=== PATIENT | male | born 1975 | race Caucasian/White ===

== ENCOUNTER 2023-10-05 16:31 | Emergency (ER) | payer OTHER, SELFPAY ==
[2023-10-05 16:34] VITALS: BP 144/105
[2023-10-05 18:10] VITALS: BP 128/75
--- NOTE | 2023-10-05 18:14 | ED.GENMED ---
History of Present Illness
General
Chief Complaint: Swelling
Time Seen by Provider: 10/05/23 17:35
History of Present Illness
History of Present Illness:
48-year-old male presents the emergency department for evaluation of swelling and bruising to the left eye, was lifting weights when he dropped a part of a barbell against the left eye. When the eyelid is forced open he denies any blurry vision or
photophobia. Does not wear glasses. Denies any headaches or dizziness
Past History
Past History
ED Past Medical History: HTN
ED Past Surgical History: Orthopedic ( BKA L)
Social History
Tobacco: Non-smoker
Alcohol: None
Personal:
Living: with family
Employment: Employed
Review of Systems
Review of Systems
Allergies reviewed?: Yes
All Other Systems: ROS reviewed and negative except as documented in HPI and ROS
Phy Exam
Physical Exam
Physical Exam:
GEN: Well appearing, NAD, WDWN
HEENT: Severe left periorbital ecchymosis and swelling primarily supraorbital, no crepitus or open wounds. Extraocular motions are intact with no deficit or pain bilaterally, normal pupillary response on the left with no evidence for hyphema or
scleral injection. oral mucosa moist, no scleral icterus
Cardiac: Regular rate
Lung: No respiratory distress, no tachypnea
MSK: No gross deformity or injuries
Skin: Good color, no pallor or jaundice, no rashes
Neuro: AO x3, moves all extremities freely, cranial nerves II through XII grossly intact
Psych: Calm, cooperative
Scores
Heart Failure Risk
Heart Failure Risk Score: Not Applicable
Course
Orders/Labs/Results
Orders:
Orders
10/05/23 16:37
CR Facial Bones Comp Min 3 Vw* Urgent
Comment:
Reason For Exam: injury
10/05/23 18:14
CT Facial Bones W/o Iv Contras Urgent
Comment:
Reason For Exam: L orbital injury
10/05/23 19:31
Acetaminophen [Tylenol] 1,000 mg PO NOW STA
Vital Signs
Initial and Last Documented VS:
Initial Vital Signs
Temp Pulse Resp BP Pulse Ox
98.4 F 95 20 144/105 99
10/05/23 16:34 10/05/23 16:34 10/05/23 16:34 10/05/23 16:34 10/05/23 16:34
Last Documented Vital Signs
Temp Pulse Resp BP Pulse Ox
98.4 F 71 16 122/78 98
10/05/23 16:34 10/05/23 20:51 10/05/23 20:51 10/05/23 20:51 10/05/23 20:51
MDM/Problems Addressed
MDM/Problems Addressed:
Facial bone CT was obtained as facial bone x-ray although negative is not sensitive enough to definitively rule out an orbital fracture. Imaging reveals no evidence for facial bone fracture, discussed supportive care
*Critical Care Note
Total Time (30-74mins, 75-104mins- exclusive of procedures): Not Applicable
ED Attending Note
-
Portions of this chart may have been created with voice recognition software.� Occasional wrong word or��sound alike� substitutions may have occurred due to the inherent limitations of voice recognition software.
Discharge Plan
Departure
Patient Disposition: Home (Routine Discharge)
Date of Disposition: 10/05/23
Time of Disposition: 20:21
Patient with high blood pressure during this ER visit?: No
Discharge Problem:
Periorbital hematoma of left eye
Instructions: Hematoma
Prescriptions:
No Action
hydrocodone-acetaminophen [Vicodin] 1 EACH tablet
1 ea PO Q4HPRN PRN (Reason: Pain) Qty: 15 0RF
hydrocodone-acetaminophen 5 MG/500 MG tablet
1 tab PO .Q4-6HPRN PRN (Reason: PAIN) Qty: 20 0RF
ondansetron 4 MG tablet,disintegrating
4 mg PO Q8H Qty: 15 0RF
Referrals:
Stella Wynn MD [Family Provider] -
Activity Restrictions/Additional Instructions:
ICE ICE BABY!
Ice often, at least 3-5 times daily
Sleep with your head elevated for at least the next 3 days, as this will help the blood drain from around the eye
If you develop any vision changes, return immediately to the ER
Interventions
Interventions:
*Risk Screen - Suicide Last Done: 10/05/23 16:34
*General Assessment Last Done: 10/05/23 16:34
*Neglect/Abuse Screening Last Done: 10/05/23 16:34
ED- Fall Risk Assessment Last Done: 10/05/23 18:29
*ED COVID-19 Vaccine History Last Done: 10/05/23 20:51
*Nursing Disposition Last Done: 10/05/23 20:51
ED- Cardiac Assessment Last Done: 10/05/23 18:29
ED- Pulmonary Assessment Last Done: 10/05/23 18:29
ED-Skin Assessment Last Done: 10/05/23 18:29
Discharge Date and Time
Discharge Date/Time: 10/05/23 20:52
Print Language: BULGARIAN
[2023-10-05 19:00] VITALS: BP 122/72
[2023-10-05] MEDS: TYLENOL 1000 MG PO (19:39)
[2023-10-05 20:00] VITALS: BP 131/71
[2023-10-05 20:51] VITALS: BP 122/78
== END 2023-10-05 20:52 | disposition home or self-care (01) ==
LOC: EMR 16:31
PROVIDERS: EMERGENCY PHYSICIAN Emergency Medicine; FAMILY PHYSICIAN Family Medicine
DX: S00.12XA Contusion of left eyelid and periocular area, initial encounter (principal); W20.8XXA Other cause of strike by thrown, projected or falling object, initial encounter; Y93.B3 Activity, free weights; I10 Essential (primary) hypertension; Z89.512 Acquired absence of left leg below knee
CPT/HCPCS: 99284; 70150; 70486

== ENCOUNTER 2023-12-11 18:17 | Emergency (ER) | payer OTHER, SELFPAY ==
[2023-12-11 18:19] VITALS: BP 122/84
--- NOTE | 2023-12-11 18:37 | EDRN ---
Herbert HWANG was just in to see pt.
[2023-12-11] MEDS: BENADRYL 50 MG IV (18:42)
[2023-12-11] MEDS: PEPCID 20 MG IV (18:44)
--- NOTE | 2023-12-11 18:44 | ED.GENMED ---
History of Present Illness
General
Chief Complaint: Allergic Reaction
Source: patient and spouse
Exam Limitations: none
Time Seen by Provider: 12/11/23 18:27
History of Present Illness
History of Present Illness:
This is a 48 year old male that comes in with c/o allergic reaction. States that he went to today as he has been sick for a couple of weeks. States that he started with head/sinus pressure and he had some discharge. States that they gave him
Prednisone and Amoxicillin. States that he took this at 5pm and in 20 mint he was red, felt like his throat was closing and he had hives all over. States that he felt SOB with burning in his chest. States that he was also dizzy. states that he
has taken both before and never had any issues. Denies any fever, chills, chest pain, abd pain, nausea, vomiting, diarrhea, headache, urinary burning.
Past History
Past History
ED Past Medical History: Cancer (Skin CA), HTN, Psychiatric (Anxiety, Depression) and Other (De Leon's Esophagus, IBS, )
ED Past Surgical History: Orthopedic ( L AKA due to trauma) and Other (Plastic surgery to knee, Nasal surgery, )
Social History
Tobacco: Non-smoker
Alcohol: Occasional
Personal:
Living: with family
Employment: Employed
Review of Systems
Review of Systems
All Other Systems: ROS reviewed and negative except as documented in HPI and ROS
Constitutional: Reports no symptoms; Denies fever or chills
EENT: Reports no symptoms
Respiratory: Reports trouble breathing; Denies cough
Cardiac: Reports other (Burning in chest); Denies chest pain
ABD/GI: Reports no symptoms; Denies abdominal pain, nausea, vomiting or diarrhea
: Reports no symptoms; Denies dysuria, frequency or urgency
Musculoskeletal: Reports no symptoms
Skin: Reports other (Hives, )
Neurological: Reports dizzy; Denies headache
Psychiatric: Reports no symptoms
Phy Exam
General Physical Exam
General Presentation: no apparent distress
General age: appears stated age
General Skin: warm and dry
General Habitus: normal
General Mental: alert
General Hydration: appears well hydrated
ENT Exam
ENT Exam: TM's normal, pharynx normal and neck supple
Eye Exam
Eye Exam: EOMI
Cardiovascular Exam
Cardiovascular Exam: regular rate/rhythm, no edema, no murmur and normal peripheral pulses
Pulmonary Exam
Pulmonary Exam: lungs clear, no respiratory distress, no rales, chest non tender, no crackles, no rhonchi, no wheezing and no cough
Gastrointestinal Exam
Gastrointestinal Exam: normal bowel sounds, non tender, soft, no organomegaly, no pulsatile mass and non distended
Musculoskeletal Exam
Musculoskeletal Exam: full ROM and no edema
Skin Exam
Skin Exam: normal color, warm/dry, no rash, no petechia and other (Hives are now gone)
Psychiatric Exam
Psychiatric Exam: anxious
Course
Orders/Labs/Results
Orders:
Orders
12/11/23 18:35
0.9% Sodium Chloride 1000 ml [Nss] 1,000 ml IV BOLUS
Diphenhydramine [Benadryl] 50 mg IV NOW STA
Famotidine [Pepcid] 20 mg IV NOW STA
Vital Signs
Initial and Last Documented VS:
Initial Vital Signs
Temp Pulse Resp BP Pulse Ox
98.6 F 92 18 122/84 99
12/11/23 18:19 12/11/23 18:19 12/11/23 18:19 12/11/23 18:19 12/11/23 18:19
Last Documented Vital Signs
Temp Pulse Resp BP Pulse Ox
98.6 F 87 20 137/81 97
12/11/23 18:19 12/11/23 19:14 12/11/23 19:07 12/11/23 18:50 12/11/23 19:07
MDM/Problems Addressed
Differential Diagnosis Includes:
Allergic reaction,
MDM/Problems Addressed:
This is a 48 year old male that comes in with c/o allergic reaction. States that he went to and was given Amoxicillin and Prednisone for a sinus infection. States that he took them at 5pm and in 20 mint he broke out in hives.
Will give Pepcid and Benadryl and watch patient.
back into see patient. Patient is feeling much better. Patient would like a different antibiotic for his sinus infection. Will give patent a prescription for Zithromax and EpiPen. Patient to follow up wtih the family doctor and an allergiest for
further testing. Patient to return with any concerns.
Chronic conditions affecting care:
Anxiety
Acute Exacerbation and/or Progression of Chronic Illness:
Anxiety
*Pulse Oximetry
Patient hypoxic: no
*EKG
Interpreted by ED Provider?: NA
Rate: EKG- N/A
*First Officer Interpretation
Rate: normal
Heart Rate: 87
*Critical Care Note
Total Time (30-74mins, 75-104mins- exclusive of procedures): Not Applicable
ED Attending Note
-
Portions of this chart may have been created with voice recognition software.� Occasional wrong word or��sound alike� substitutions may have occurred due to the inherent limitations of voice recognition software.
Discharge Plan
Departure
Patient Disposition: Home (Routine Discharge)
Date of Disposition: 12/11/23
Time of Disposition: 19:59
Patient with high blood pressure during this ER visit?: Yes
Condition: Good
Covid-19: Not Applicable
Discharge Problem:
Allergic reaction to drug
Instructions: Hives, Adverse Drug Reactions, Adult ED, BLOOD PRESSURE
Prescriptions:
New
epinephrine [EpiPen] 0.3 mg/0.3 mL auto-injector
0.3 mg IM ONCE PRN (Reason: allergic reaction) Qty: 1 0RF
azithromycin [Zithromax Z-Pio] 250 mg tablet
250 mg PO DAILY 5 Days Qty: 5 0RF
Rx Instructions:
Take 2 tablets first day and then 1tablet daily
No Action
hydrocodone-acetaminophen [Vicodin] 1 EACH tablet
1 ea PO Q4HPRN PRN (Reason: Pain) Qty: 15 0RF
hydrocodone-acetaminophen 5 MG/500 MG tablet
1 tab PO .Q4-6HPRN PRN (Reason: PAIN) Qty: 20 0RF
ondansetron 4 MG tablet,disintegrating
4 mg PO Q8H Qty: 15 0RF
Referrals:
Len Vargas PA [Family Provider] - Follow up in 2-3 days
Activity Restrictions/Additional Instructions:
As discussed, it is hard to say which medication you were allergic to. Most likely it is the antibiotics. Please follow up with an panel sewer for further evaluation. You have had a prescription for Zithromax sent to your Pharmacy. You also have a
prescription for an EpiPen for any further allergic reaction. Follow up with the family doctor for recheck. You may also use Benadryl 50mg every 6 hours as needed for any hives. IF YOU HAVE ANY OTHER CONCERNS PLEASE RETURN TO THE EMERGENCY ROOM
Interventions
Interventions:
*Risk Screen - Suicide Last Done: 12/11/23 18:50
*General Assessment Last Done: 12/11/23 18:50
*Neglect/Abuse Screening Last Done: 12/11/23 18:50
ED- Fall Risk Assessment Last Done: 12/11/23 18:50
*ED COVID-19 Vaccine History Last Done: 12/11/23 18:50
ED- Cardiac Assessment Last Done: 12/11/23 18:50
ED- Pulmonary Assessment Last Done: 12/11/23 18:50
ED-Skin Assessment Last Done: 12/11/23 18:50
Discharge Date and Time
Print Language: UPPER SORBIAN
[2023-12-11] MEDS: NSS 1000 IV (18:45)
[2023-12-11 18:49] VITALS: BMI 37.0
[2023-12-11 18:50] VITALS: BP 137/81
--- NOTE | 2023-12-11 18:53 | EDRN ---
Pt states he developed redness and pruritis over torso and head w/ SOB. Redness went up from torse to head. Pt had burning sensation in throat and chest like acid reflux.
[2023-12-11 20:00] VITALS: BP 137/78
== END 2023-12-11 20:15 | disposition home or self-care (01) ==
LOC: EMR 18:17
PROVIDERS: EMERGENCY PHYSICIAN Student in an Organized Health Care Education/Training Program; FAMILY PHYSICIAN Nurse Practitioner Family
DX: T78.40XA Allergy, unspecified, initial encounter (principal); Y92.9 Unspecified place or not applicable; I10 Essential (primary) hypertension; F41.9 Anxiety disorder, unspecified; K58.9 Irritable bowel syndrome, unspecified; K22.70 Barrett's esophagus without dysplasia; Z85.828 Personal history of other malignant neoplasm of skin; Z87.19 Personal history of other diseases of the digestive system; Z89.612 Acquired absence of left leg above knee
CPT/HCPCS: 99282; 96374; 96375; 96361

== ENCOUNTER 2024-10-04 03:04 | Emergency (ER) | payer OTHER, SELFPAY ==
[2024-10-04 03:13] VITALS: BP 136/79
[2024-10-04] MEDS: KEFLEX 500 MG PO (04:30)
--- NOTE | 2024-10-04 05:16 | ED.SKININJ ---
HPI-Injury
General
Chief Complaint: Skin Problem
Source: patient
Exam Limitations: none
Time Seen by Provider: 10/04/24 03:23
Nursing documentation reviewed up to this point in time: agreed with
History of Present Illness-Injury
Initial Injury comments:
Note:
CHIEF COMPLAINT(S)
Abscess on the right back with associated redness and low-grade fevers.
HISTORY OF PRESENT ILLNESS
The patient is a 49-year-old male presenting with an abscess located on his right back. The abscess appeared to have spontaneously drained; however, he is experiencing associated redness and low-grade fevers. The patient visited an urgent care
facility and was prescribed a four-day course of antibiotics, which have not resulted in an improvement of symptoms. The plan is to anesthetize the area and attempt further drainage of the abscess.
PHYSICAL EXAM
General: Alert, no acute distress.
Skin: Warm, dry.
Head: Normocephalic, atraumatic.
Neck: Supple, trachea midline.
Eye, Ears, Nose, Mouth and Throat: Oral mucosa moist.
Cardiovascular: Normal peripheral perfusion, No edema.
Respiratory: Respirations are non-labored.
Gastrointestinal: Abdomen nondistended.
Back: Temporary note exclusion due to the conversation focusing on the abscess intervention.
Musculoskeletal: Normal range of motion, normal strength.
Neurological: Alert and oriented to person, place, time, and situation, No focal neurological deficit observed.
Psychiatric: Cooperative, appropriate mood & affect.
PROBLEM LIST
Acute Problems:
- Abscess on the right back with associated redness and low-grade fevers.
PLAN
- Administer local anesthesia to the affected area and proceed with drainage of the abscess.
DIFFERENTIAL DIAGNOSIS
The Differential Diagnosis includes, in no particular order and is not limited to:
1. Infected sebaceous cyst
2. Staphylococcal skin infection
3. Cellulitis
4. Folliculitis
5. Acneiform eruption
6. Hidradenitis suppurativa
7. Carbuncle
8. Furunculosis
9. Pilonidal cyst
10. Epidermal inclusion cyst
CARE-UPDATE
10/04/24 - 03:55
The patient presented with a lesion suspected to be either a bug bite, a cyst, or another form of abscess. Currently on TMP-SMX (Bactrim) for two days, with four doses taken in total. Inspection revealed a lesion with bloody and creamy exudate,
which suggested drainage had started as the lesion opened up on its own. Attempts to further drain the lesion indicated it was solidified inside, described as caseated material, and was not amenable to further drainage. No fever reported, slightly
elevated temperature at 99.5�F today. Antibiotic therapy with TMP-SMX will be continued to allow enough time for evaluation of its effectiveness. Potential addition of cephalexin is under consideration. The lesion is likely to resorb or drain slowly
with continued antibiotic treatment. The area was cleaned and left open to avoid re-abscess, with ongoing assessment advised.
Disposition:
SUMMARY OF ENCOUNTER
A 49-year-old male was seen with a diagnosed abscess on his upper right back. He had previously visited urgent care where the abscess was not drained and was prescribed TMP/SMX (trimethoprim/sulfamethoxazole, known by brand name Bactrim). After two
days and four doses of TMP/SMX, his pain worsened, and the abscess, which had initially started to drain on its own, ceased to do so. The area shows erythema but does not present with cellulitis. In the emergency department, cephalexin (brand name
Keflex) was added to his TMP/SMX regimen. After precautionary observation due to his known allergy to amoxicillin, the patient was monitored for 30 minutes post-administration of cephalexin given potential cross-reactivity concerns.
DISPOSITION
The patient is set for discharge in improved condition.
ASSESSMENT
The patient is presenting with an abscess on the upper right back, which is currently not actively draining but does not show signs of cellulitis.
EMERGENCY TREATMENTS ADMINISTERED
Cephalexin (Keflex) was administered in the emergency department.
PLAN
The patient will continue taking both TMP/SMX and newly prescribed cephalexin. The patient is advised to keep the area clean, perform warm water soaks, and monitor for symptom changes. Follow-up is necessary if symptoms worsen, including fever,
chills, or nausea.
FOLLOW-UP INSTRUCTIONS
The patient should return to the emergency department if there is a change in or worsening of symptoms, including fever, chills, nausea, or a worsening rash.
MEDICATION RECONCILIATION
- TMP/SMX (Bactrim): Continue current regimen.
- Cephalexin (Keflex): Added to current antibiotic therapy.
MEDICAL DECISION MAKING
-Complexity of Data Reviewed: Chronic conditions affecting care were not explicitly mentioned. Differential diagnosis includes considerations for an infected sebaceous cyst, staphylococcal skin infection, cellulitis, and other potential similar
conditions listed in the differential.
-Data:
Category 1
Non-emergency department records reviewed: Initial treatment at urgent care and prescription of TMP/SMX were considered.
Category 3
Discussion of management with other healthcare providers was not explicitly mentioned, but observation for allergic reaction was carried out after cephalexin administration due to known amoxicillin allergy concerns.
-Risk:
Consideration of Admission/Observation: Escalation of care including admission/observation was considered given the complexity and risk of the patients presenting complaint. However, ultimately the patient is safe for outpatient management with
close follow-up. Reasoning: Work-up reassuring, does not reveal any acute life/organ threatening processes, patients symptoms well controlled upon reevaluation, reexamination is reassuring, vitals are stable, patient agreeable with discharge,
reliable for follow-up.
DIAGNOSIS
- Abscess of skin, unspecified site (ICD-10: L02.91)
Past History
Past History
ED Past Medical History: Cancer (Skin CA), HTN, Psychiatric (Anxiety, Depression) and Other (De Leon's Esophagus, IBS, )
ED Past Surgical History: Orthopedic ( L AKA due to trauma) and Other (Plastic surgery to knee, Nasal surgery, )
Social History
Tobacco: Non-smoker
Alcohol: Occasional
Personal:
Living: with family
Employment: Employed
Phy Exam
Physical Exam
Physical Exam:
.
Sepsis
Sepsis Screening
Sepsis Assessment: Sepsis Ruled Out
Sepsis Screen
Sepsis Screen: Sepsis Ruled Out
Date: 10/04/24
Time: 21:56
Course
Orders/Labs/Results
Orders:
Orders
10/04/24 03:25
0.9% Sodium Chloride 1000 ml [Nss] 1,000 ml IV BOLUS
10/04/24 04:16
Cephalexin Monohydrate [Keflex] 500 mg PO NOW STA
Vital Signs
Initial and Last Documented VS:
Initial Vital Signs
Temp Pulse Resp BP Pulse Ox
98.5 F 97 15 136/79 97
10/04/24 03:13 10/04/24 03:13 10/04/24 03:13 10/04/24 03:13 10/04/24 03:13
Last Documented Vital Signs
Temp Pulse Resp BP Pulse Ox
98.5 F 97 15 136/79 97
10/04/24 03:13 10/04/24 03:13 10/04/24 03:13 10/04/24 03:13 10/04/24 05:17
Procedures
Incision/Drainage/Joint Aspiration
Right Back:
Anethesia: 1% Lidocaine
Preparation: cleaned with Betadine
Type of procedure: incise
Description of abscess: less than 3cm
How much fluid was obtained?: none (No liquid discharge. It appears caseous.)
Treatment: left open for drainage
*Pulse Oximetry
SaO2: 97
Oxygen Mode of Delivery: Room air
Patient hypoxic: no
*Critical Care Note
Total Time (30-74mins, 75-104mins- exclusive of procedures): Not Applicable
ED Attending Note
-
Portions of this chart may have been created with voice recognition software.� Occasional wrong word or��sound alike� substitutions may have occurred due to the inherent limitations of voice recognition software.
Discharge Plan
Departure
Patient Disposition: Home (Routine Discharge)
Date of Disposition: 10/04/24
Time of Disposition: 05:20
Patient with high blood pressure during this ER visit?: Yes
Discharge Problem:
Abscess of back
Instructions: Wound Care (DC), BLOOD PRESSURE, Skin Abscess
Prescriptions:
New
cephalexin 500 mg capsule
500 mg PO QID 7 Days Qty: 28 0RF
diclofenac sodium 75 mg tablet,delayed release (DR/EC)
75 mg PO BID Qty: 10 0RF
No Action
hydrocodone-acetaminophen [Vicodin] 1 EACH tablet
1 ea PO Q4HPRN PRN (Reason: Pain) Qty: 15 0RF
hydrocodone-acetaminophen 5 MG/500 MG tablet
1 tab PO .Q4-6HPRN PRN (Reason: PAIN) Qty: 20 0RF
ondansetron 4 MG tablet,disintegrating
4 mg PO Q8H Qty: 15 0RF
epinephrine [EpiPen] 0.3 mg/0.3 mL auto-injector
0.3 mg IM ONCE PRN (Reason: allergic reaction) Qty: 1 0RF
azithromycin [Zithromax Z-Pio] 250 mg tablet
250 mg PO DAILY 5 Days Qty: 5 0RF
Rx Instructions:
Take 2 tablets first day and then 1tablet daily
Referrals:
NONE,* [Family Provider, Internal Medicine]
Activity Restrictions/Additional Instructions:
Thank You for choosing [facility].
It was a pleasure meeting you and taking part in your care. We hope for your continued healing and wellness.
Please read discharge instructions in their entirety. However, they are for general education and may not describe your exact diagnosis at discharge. Information on your ER visit and medical conditions were discussed with you along with appropriate
follow up information...
If indicated, please take your medications as instructed and indicated on discharge paperwork.
Please schedule a follow up appointment as directed. Call to schedule an appointment
Please return to the emergency department with ANY change in, persisting, or worsening of symptoms. If any of your symptoms do not improve, or persist, or become more severe within 6-12 hours, please return to the emergency department for further
care.
Please return to the emergency department if you develop a headache, neck pain/stiffness, fever greater than 100.4F, chest pain, shortness of breath, persistent nausea, vomiting, slurred speech, difficulty walking, numbness/tingling, weakness, signs
of infection or any other symptoms that are worrisome to you.
If you have any questions or concerns please do not hesitate to call the Hospital at or E-mail me directly at [email or web address]
Interventions
Interventions:
*Risk Screen - Suicide Last Done: 10/04/24 03:13
*General Assessment Last Done: 10/04/24 05:33
*Neglect/Abuse Screening Last Done: 10/04/24 05:33
*ED- Fall Risk Assessment Last Done: 10/04/24 05:33
*ED COVID-19 Vaccine History Last Done: 10/04/24 05:33
*Nursing Disposition Last Done: 10/04/24 05:33
ED-Skin Assessment Last Done: 10/04/24 05:33
Discharge Date and Time
Discharge Date/Time: 10/04/24 05:34
Print Language: TELUGU
== END 2024-10-04 05:34 | disposition home or self-care (01) ==
LOC: EMR 03:04
PROVIDERS: EMERGENCY PHYSICIAN Student in an Organized Health Care Education/Training Program
DX: L02.212 Cutaneous abscess of back [any part, except buttock and flank] (principal); I10 Essential (primary) hypertension; K58.9 Irritable bowel syndrome, unspecified; Z85.828 Personal history of other malignant neoplasm of skin; Z87.19 Personal history of other diseases of the digestive system; Z89.612 Acquired absence of left leg above knee
CPT/HCPCS: 99282; 10060

== ENCOUNTER 2024-10-09 09:43 | Inpatient (IN) | payer OTHER, SELFPAY ==
[2024-10-06 19:08] VITALS: BP 144/85
--- NOTE | 2024-10-06 20:00 | ED.GENMED ---
History of Present Illness
<Sumi Puga PA-C - Last Filed: 10/07/24 00:10>
General
Chief Complaint: Skin Problem
Source: patient and records
Exam Limitations: none
Time Seen by Provider: 10/06/24 19:47
History of Present Illness
History of Present Illness:
49yoM with a history of De Leon's esophagus, IBS, and hyperlipidemia presenting with his for evaluation of a back wound. He first noticed the symptoms about a week ago. He initially thought it may be an ingrown hair. He was seen at urgent
care 4 days ago and was started on Bactrim. He was seen in the ED 3 days ago for persistent symptoms. I&D was attempted but there was no drainage and he was told that the fluid was too thick. He was given an additional prescription for Keflex.
He is here today with worsening swelling, redness, and pain to the area. He denies any fevers or chills.
Past History
<Sumi Puga PA-C - Last Filed: 10/07/24 00:10>
Past History
ED Past Medical History: Cancer (Skin CA), HTN, Psychiatric (Anxiety, Depression) and Other (De Leon's Esophagus, IBS, )
ED Past Surgical History: Orthopedic ( L AKA due to trauma) and Other (Plastic surgery to knee, Nasal surgery, )
Social History
Tobacco: Non-smoker
Alcohol: Occasional
Personal:
Living: with family
Employment: Employed
Phy Exam
<Sumi Puga PA-C - Last Filed: 10/07/24 00:10>
General Physical Exam
General Presentation: well appearing and no apparent distress
General Skin: warm and dry
General Habitus: normal
General Mental: alert
ENT Exam
ENT Exam: normocephalic
Pulmonary Exam
Pulmonary Exam: no respiratory distress
Neurological Exam
Neurological Exam: alert
Merrill Coma Scale
Eye Opening: Spontaneous
Verbal Response: Oriented
Motor Response: Obeys Commands
GCS Total Score: 15
Skin Exam
Skin Exam: other (Open wound noted to L upper back with underlying induration and surrounding erythema/warmth and tenderness. No fluctuance palpated. )
Psychiatric Exam
Psychiatric Exam: normal mood/affect
Course
<Sumi Puga PA-C - Last Filed: 10/07/24 00:10>
Orders/Labs/Results
Orders:
Orders
10/06/24 Dinner
Cholesterol Lowering
At Your Request: Limited Participation
Does patient need a safe tray?: No
Cholesterol Lowering: Sodium, 2 Gram
10/06/24 20:17
Complete Blood Count/With Diff Urgent
Comprehensive Metabolic Panel Urgent
10/06/24 21:12
Vancomycin [Vancocin] 2,000 mg 0.9% Sodium Chloride 500 ml [Nss] 500 ml IV NOW
10/06/24 21:13
Wound Culture [Wound/Abscess/Other Culture] Urgent
SOLO Source: Back
Specimen Description:
Date Specimen was Collected: 10/06/24
Time Specimen was Collected: 21:03
10/06/24 21:38
Admit/Transfer Patient As Directed
Co-Sign Provider:
Level of Care: Observation services
Assign to:: Medical/Surgical
Physician / Group: Milan Owen
Diagnosis: skin infection right upper back
10/06/24 21:39
PRN Pain Medication Management As Directed
May give lesser potent ordered pain med per pt: Yes
preference::
Protocol:: Medication orders for pain may be administered in a
manner that supports deferring to patient preference
when the pt is:
- Requesting an ordered lesser potent pain medication.
Least to most potent pain medications are defined
as: acetaminophen < NSAID < tramadol < opioids
(morphine, oxycodone, hydromorphone).
- Requesting a lesser dose of the same medication IF
ORDERED.
- Requesting a less intrusive route of administration
if both routes are prescribed by the provider (PO <
IV).
10/06/24 21:41
Code Status As Directed
Resuscitation Status: Full Code
10/06/24 22:45
Activity As Directed
Activity Level: Ambulate
Vital Signs As Directed
Frequency: Per unit guidelines
Weight As Directed
Frequency: Once
Comment: on admission
DX Deep Vein Thrombosis Video Routine
10/06/24 23:00
MRSA Screen Routine
SOLO Source: Nose
Specimen Description:
10/07/24 06:00
Basic Metabolic Panel IN AM
Complete Blood Count/No Diff IN AM
10/07/24 08:00
Allopurinol [Zyloprim] 300 mg PO DAILY
Multivitamin [Theragran] 1 tablet PO DAILY
Pantoprazole [Protonix] 40 mg PO DAILY
Rosuvastatin Calcium [Crestor] 20 mg PO DAILY
Sertraline HCl [Zoloft] 100 mg PO DAILY
diclofenac sodium 75 mg PO BID
10/07/24 18:00
Enoxaparin Sodium [Lovenox] 40 mg SC QPM
Abnormal Lab Results
10/06/24
20:17
RBC 4.63 L 10^6/uL
(4.70-6.10)
MPV 11.2 H fL
(7.4-10.4)
Absolute Lymphs (auto) 1.1 L 10^3/uL
(1.2-3.4)
Absolute Monos (auto) 0.9 H 10^3/uL
(0.1-0.6)
Lymphocytes % 17.0 L %
(20.5-51.1)
Monocytes % 13.9 H %
(1.7-9.3)
10/06/24 20:17
10/06/24 20:17
Vital Signs
Initial and Last Documented VS:
Initial Vital Signs
Temp Pulse BP Pulse Ox
98.4 F 74 144/85 99
10/06/24 19:08 10/06/24 19:08 10/06/24 19:08 10/06/24 19:08
Last Documented Vital Signs
Temp Pulse Resp BP Pulse Ox
98.1 F 70 18 146/76 98
10/06/24 23:01 10/06/24 23:01 10/06/24 23:01 10/06/24 23:01 10/06/24 23:01
<Kathya Whitley MD - Last Filed: 10/06/24 20:37>
Orders/Labs/Results
Orders:
Orders
10/06/24 Dinner
Cholesterol Lowering
At Your Request: Limited Participation
Does patient need a safe tray?: No
Cholesterol Lowering: Sodium, 2 Gram
10/06/24 20:17
Complete Blood Count/With Diff Urgent
Comprehensive Metabolic Panel Urgent
10/06/24 21:12
Vancomycin [Vancocin] 2,000 mg 0.9% Sodium Chloride 500 ml [Nss] 500 ml IV NOW
10/06/24 21:13
Wound Culture [Wound/Abscess/Other Culture] Urgent
SOLO Source: Back
Specimen Description:
Date Specimen was Collected: 10/06/24
Time Specimen was Collected: 21:03
10/06/24 21:38
Admit/Transfer Patient As Directed
Co-Sign Provider:
Level of Care: Observation services
Assign to:: Medical/Surgical
Physician / Group: Milan Owen
Diagnosis: skin infection right upper back
10/06/24 21:39
PRN Pain Medication Management As Directed
May give lesser potent ordered pain med per pt: Yes
preference::
Protocol:: Medication orders for pain may be administered in a
manner that supports deferring to patient preference
when the pt is:
- Requesting an ordered lesser potent pain medication.
Least to most potent pain medications are defined
as: acetaminophen < NSAID < tramadol < opioids
(morphine, oxycodone, hydromorphone).
- Requesting a lesser dose of the same medication IF
ORDERED.
- Requesting a less intrusive route of administration
if both routes are prescribed by the provider (PO <
IV).
10/06/24 21:41
Code Status As Directed
Resuscitation Status: Full Code
10/06/24 22:45
Activity As Directed
Activity Level: Ambulate
Vital Signs As Directed
Frequency: Per unit guidelines
Weight As Directed
Frequency: Once
Comment: on admission
DX Deep Vein Thrombosis Video Routine
10/06/24 23:00
MRSA Screen Routine
SOLO Source: Nose
Specimen Description:
10/07/24 06:00
Basic Metabolic Panel IN AM
Complete Blood Count/No Diff IN AM
10/07/24 08:00
Allopurinol [Zyloprim] 300 mg PO DAILY
Multivitamin [Theragran] 1 tablet PO DAILY
Pantoprazole [Protonix] 40 mg PO DAILY
Rosuvastatin Calcium [Crestor] 20 mg PO DAILY
Sertraline HCl [Zoloft] 100 mg PO DAILY
diclofenac sodium 75 mg PO BID
10/07/24 18:00
Enoxaparin Sodium [Lovenox] 40 mg SC QPM
Abnormal Lab Results
10/06/24
20:17
RBC 4.63 L 10^6/uL
(4.70-6.10)
MPV 11.2 H fL
(7.4-10.4)
Absolute Lymphs (auto) 1.1 L 10^3/uL
(1.2-3.4)
Absolute Monos (auto) 0.9 H 10^3/uL
(0.1-0.6)
Lymphocytes % 17.0 L %
(20.5-51.1)
Monocytes % 13.9 H %
(1.7-9.3)
10/06/24 20:17
10/06/24 20:17
Vital Signs
Initial and Last Documented VS:
Initial Vital Signs
Temp Pulse BP Pulse Ox
98.4 F 74 144/85 99
10/06/24 19:08 10/06/24 19:08 10/06/24 19:08 10/06/24 19:08
Last Documented Vital Signs
Temp Pulse Resp BP Pulse Ox
98.1 F 70 18 146/76 98
10/06/24 23:01 10/06/24 23:01 10/06/24 23:01 10/06/24 23:01 10/06/24 23:01
<Sumi Puga PA-C - Last Filed: 10/07/24 00:10>
MDM/Problems Addressed
Differential Diagnosis Includes:
49yoM here with a back wound. Second ED vist this week for the same. Taking Keflex/Bactrim and symptoms continue to worse. He is afebrile and well appearing. There is an open wound noted to L upper back with induration and erythema. No palpable
fluctuance. Differential diagnosis includes but is not limited to: cellulitis, abscess, infected cyst
Labs obtained and white count is normal. No obvious fluctuance on exam and patient had an unsuccessful I&D at his recent ED visit so will defer I&D. Will admit for failure of outpatient antibiotics. IV vancomycin ordered.
<Sumi Puga PA-C - Last Filed: 10/07/24 00:10>
*Pulse Oximetry
SaO2: 99
Oxygen Mode of Delivery: Room air
Patient hypoxic: no (99%)
*Critical Care Note
Total Time (30-74mins, 75-104mins- exclusive of procedures): Not Applicable
ED Attending Note
<Sumi Puga PA-C - Last Filed: 10/07/24 00:10>
-
Portions of this chart may have been created with voice recognition software.� Occasional wrong word or��sound alike� substitutions may have occurred due to the inherent limitations of voice recognition software.
<Kathya Whitley MD - Last Filed: 10/06/24 20:37>
ED Attending Note
Patient seen and examined by attending physician: Yes
I performed the substantive portion of visit, reviewed & personally made and approve the management plan that is documented in note by myself or ANDRESSA.: Yes
ED Attending Note:
Patient appears nontoxic and well, however, he reports worsening erythema and low-grade fever despite being on antibiotics for about 5 days. Patient is breathing comfortably. Wound on right upper back is open, purulent but very indurated. It is
not particularly fluctuant, therefore, I do not think he would benefit from an I&D.
Discharge Plan
Departure
Patient Disposition: Admit
Date of Disposition: 10/06/24
Time of Disposition: 20:56
Presentation/result/management discussed w/ accepting MD/DO: Hospitalist
Discharge Problem:
Wound infection
Interventions
Interventions:
*Risk Screen - Suicide Last Done: 10/06/24 19:08
*General Assessment Last Done: 10/06/24 19:08
*Neglect/Abuse Screening Last Done: 10/06/24 19:08
*ED- Fall Risk Assessment Last Done: 10/06/24 20:00
*ED COVID-19 Vaccine History Last Done: 10/06/24 20:00
*Nursing Disposition Last Done: 10/06/24 22:41
ED-Skin Assessment Last Done: 10/06/24 20:00
Discharge Date and Time
Discharge Date/Time: 10/06/24 22:42
[2024-10-06 20:31] LABS: Hematocrit 40.6 % (39.0-52.0); Hemoglobin 13.7 g/dL (13.0-18.0); Mean Corp Hgb Conc. 33.7 g/dL (33.0-37.0); Mean Corpuscular Volume 87.7 fL (80.0-94.0); Nucleated Red Blood Cells % 0 % (-); Platelet Count 170 10^3/uL (130-400); Red Cell Dist. Width 12.8 % (11.5-14.5)
[2024-10-06 20:49] LABS: ALT (SGPT) 38 U/L (0-50); AST (SGOT) 50 U/L (17-59); Albumin 4.4 g/dl (3.5-5.0); Alkaline Phosphatase 57 U/L (38-126); Blood Urea Nitrogen 19 mg/dl (9-20); Calcium 9.3 mg/dl (8.4-10.2); Carbon Dioxide 26 mmol/L (22-30); Chloride 103 mmol/L (98-107); Glucose 94 mg/dl (70-99); Potassium 5.0 mmol/L (3.5-5.1); Sodium 137 mmol/L (135-145); Total Protein 6.8 g/dl (6.3-8.2); eGFR > 60.00
--- NOTE | 2024-10-06 21:03 | HPS.HSE ---
Addendum entered and electronically signed by Milan Owen DO 10/06/24 22:16:
Patient seen and examined independently. Agree with findings and plan as set forth by ERI Sotomayor.
Patient is a 49y M with PMH significant for BKA, melanoma and YOSSI who presents to ED complaining of wound / abscess on the back x 1 week. Patient noted redness, pain and swelling in the area last Thursday. He was seen at Urgent Care and placed on
oral abx without significant improvement. There was intermittent purulent / thick discharge from the site. He was seen here in the ED on 10/04 and additional I&D was attempted without expression of significant material from the site. Keflex was
added to his Bactrim and patient was discharged to home. He notes no improvement since that time. Minimal continued drainage / discharge. New small pustules around the edge of the indurated area today.
Ass:
Abscess / Cellulitis of Trunk
History of Melanoma s/p Resection (2009)
Anxiety / Depression
YOSSI
GERD / De Leon's
s/p BKA
Plan:
Admit for further evaluation and treatment.
Continue IV vancomycin for now.
Check MRSA swab / follow-up abscess culture data.
Surgery evaluation for probable local I&D.
Original Note:
Family Physician
-
Family Physician: * NONE
Chief Complaint
-
worsening infection on right upper back
History of Present Illness
Patient is a 49-year-old male with past medical history significant for hyperlipidemia, who presented to [facility] ED for evaluation of hyperlipidemia, depression, gout, GERD and YOSSI who presented to [facility] ED for evaluation of worsening infection on right
upper back. Patient reports area he noticed started being irritated last Monday September 30, 2024, when he thought he potentially had a ingrown hair. He also reports a recent [employer] race the week before that possible sustained a scratch or open area
that would have gotten dirty. Patient reports going to urgent care 4 days ago and was prescribed Bactrim. He then was seen in ED 2 days ago for worsening symptoms and was prescribed Keflex to add to Bactrim and I&D was attempted with no drainage.
Patient reports taking antibiotics as prescribed. Reports low grade fevers of 99 last 2 days. Denies any chills, cough, shortness of breath, chest pain, nausea, vomting, consitpaion, diarrhea or urinary changes
Medical History
Past Medical History
Past Medical History: Reports Other
Additional Past Medical History:
hyperlipidemia
depression
gout
GERD
YOSSI
De Leon's esophagus
IBS
Past Surgical History: Reports Other
Additional Past Surgical History:
L AKA
septoplasty
panniculectomy
Social History
Tobacco: Non-smoker
Alcohol: Occasional
Drug: Marijuana (THC gummies for insomnia occasionally )
Personal:
Living: With Family
Employment: Retired
Family History
Family History: Not pertinent
Allergies / Home Medications
Allergies reflects when Allergies were last updated in [facility].
Home Medications with original date entered in [facility]
Allergy/Medication List:
Allergies
Allergy/AdvReac Type Severity Reaction Status Date / Time
amoxicillin Allergy Rash Verified 10/06/24 19:07
latex Allergy Itching Verified 10/06/24 19:07
oxycodone HCl (From Percocet) Allergy Itching Verified 10/06/24 19:07
Home Medications
Fruits And Veggies Powder 1 dose PO DAILY 10/06/24
acetaminophen 500 mg tablet (Tylenol Extra Strength) 1,000 mg PO DAILYPRN PRN mild pain 10/06/24
allopurinol 300 mg tablet 300 mg PO DAILY 10/06/24
anastrozole 1 mg tablet 1 mg PO WESA 10/06/24
azelastine 137 mcg (0.1 %) nasal spray 2 spray intranasal DAILY 10/06/24
cephalexin 500 mg capsule 500 mg PO .SEE BELOW 10/06/24
collagen 1 dose PO Q48H 10/06/24
creatine monohydrate 5 mg PO BID 10/06/24
diclofenac sodium 75 mg tablet,delayed release 75 mg PO BID 10/06/24
famotidine 40 mg tablet (Pepcid) 40 mg PO DAILYPRN PRN gerd 10/06/24
ondansetron HCl 4 mg tablet 4 mg PO Q6HPRN PRN nausea/vomiting 10/06/24
pantoprazole 40 mg tablet,delayed release 40 mg PO DAILY 10/06/24
polysaccharide iron complex 150 mg iron capsule (iFerex 150) 150 mg PO Q48H@0800 10/06/24
rosuvastatin 20 mg tablet 20 mg PO DAILY 10/06/24
sertraline 100 mg tablet 100 mg PO DAILY 10/06/24
sulfamethoxazole 800 mg-trimethoprim 160 mg tablet 1 tab PO BID 10/06/24
testosterone cypionate 200 mg/mL intramuscular oil 100 mg IM WESA 10/06/24
therapeutic multivitamin 1 tab PO DAILY 10/06/24
Review of Systems
-
History Source: Patient
Constitutional: Reports No Symptoms
EENT: Reports No Symptoms
Respiratory: Reports No Symptoms
Cardiac: Reports No Symptoms
Abdomen/GI: Reports No Symptoms
: Reports No Symptoms
Musculoskeletal: Reports No Symptoms
Skin: Reports Other (wound and infection to right upper back )
Neurological: Reports No Symptoms
Endocrine: Reports No Symptoms
Hematologic/Lymphatic: Reports No Symptoms
Psych: Reports No Symptoms
Physical Exam
Vital Signs
Vital Signs
Temp Pulse BP Pulse Ox
98.4 F 74 144/85 99
10/06/24 19:08 10/06/24 19:08 10/06/24 19:08 10/06/24 20:02
Physical Exam
General: Well Developed, Well Nourished, No Apparent Distress, Comfortable and Conversant
HEENT: NormoCephalic, Moist mucous membranes and Atraumatic
Respiratory: Clear and Non Labored Respirations
Cardiac: S1/S2 and Regular Rhythm
GI: Soft, Non Tender, Non Distended and Normal Bowel Sounds; No Organomegaly
Rectal: Deferred by Provider
Musculoskeletal: No Clubbing, No Cyanosis and No Edema
Skin: Warm, IV/Catheter Site and Other (right upper back wound with induration )
Neuro: Awake, AO x 3 and Nonfocal/grossly intact
Psych: Calm and Intact Judgment/Insight
Laboratory Results
-
10/06/24 20:17
10/06/24 20:17
Laboratory Results
Total Bilirubin 0.5 mg/dl (0.2-1.3) 10/06/24 20:17
AST 50 U/L (17-59) 10/06/24 20:17
ALT 38 U/L (0-50) 10/06/24 20:17
Alkaline Phosphatase 57 U/L (38-126) 10/06/24 20:17
Data Reviewed
-
Lab Data: Labs Reviewed by me
Impression/Plan
-
IMPRESSION/PLAN:
#right upper back wound and induration
failed out patient antibiotics
Wound Cx: pending
- Admit to med/surg
- IV Vanco
- Consult surgery
- supportive care
#hyperlipidemia
- continue rosuvastatin
#depression
- continue sertraline
#gout
- continue diclofenac
#GERD
- continue pantoprazole
#YOSSI
on CPAP at night
Code status: full code
DVT prophylaxis: lovenox sq
--- NOTE | 2024-10-06 21:19 | PHANOTE ---
10/06/2024, pt. takes Pepcid 40 mg dailyprn for gerd; could not confirm w/ pharmacy records and ecw records.
[2024-10-06] MEDS: VANCOCIN 540 MG IV (21:23)
[2024-10-06 22:49] VITALS: BMI 34.0
[2024-10-06 23:01] VITALS: BP 146/76
--- NOTE | 2024-10-06 23:02 | PHA.VAN.IN ---
Assessment
- Assessment
Renal Function: SCR Appears Elevated from baseline (03/14/18 BASELINE SCR: 1.0)
Concomitant Antimicrobials: NONE
- Previous Dosing Experience
Previous Regimen: NONE
AUC Dosing Plan
- Dosing Variables
Dosing Weight (kg): 107.6
Dosing CrCl (ml/min): 91
Vd coefficient (L/kg): 0.7
- Empiric Dosing
Initial / Loading Dose: 2GM
Maintenance Regimen: 1500MG IV Q12H
Estimated AUC (mcg*h/mL): 528
Estimated Peak (mcg*h/mL): 32.3
Estimated Trough (mcg/ml): 13.9
Estimated Half Life (H): 8.7
Pharmacokinetics Vancomycin I
- -
Patient Age: 49
Patient Sex: Male
Vancomycin Day #: 1
Indication: Skin And Soft Tissue (ABSCESS/CELLULITIS OF TRUNK)
Height / Weight:
Height 5 ft 10 in
Actual Weight 107.615 kg
Pertinent Past Medical History: [L] AKA; MELANOMA; FAILED OUTPT TX KEFLEX/BACTRIM
- Vital Signs / Lab Results
Temp Pulse BP Pulse Ox
98.4 F 74 144/85 99
10/06/24 19:08 10/06/24 19:08 10/06/24 19:08 10/06/24 20:02
Lab Results - Hematology
10/06/24
20:17
WBC 6.5
Lab Results - Chemistry
10/06/24
20:17
BUN 19
Creatinine 1.2
Albumin 4.4
[2024-10-07] MEDS: TYLENOL 1000 MG PO (03:30)
[2024-10-07] MEDS: VANCOCIN 530 MG IV ×2 (04:58→17:38)
[2024-10-07 07:27] VITALS: BP 108/60
[2024-10-07 08:01] LABS: Hematocrit 42.2 % (39.0-52.0); Hemoglobin 13.8 g/dL (13.0-18.0); Mean Corp Hgb Conc. 32.7 g/dL (33.0-37.0); Mean Corpuscular Volume 88.8 fL (80.0-94.0); Platelet Count 160 10^3/uL (130-400); Red Cell Dist. Width 12.8 % (11.5-14.5)
--- NOTE | 2024-10-07 08:11 | W.PN.HOSP.TC ---
Today's Communication/Plan
-
See PN
Assessment / Plan
Assessment / Plan
49yo M with PMHx anxiety, HLD came with 1 week of progressive pain, redness and purulent drainage from wound on R upper back. Was initially Rx Abx, then attempted to have underskin collection drained in ED, however unsuccessful due to thick
consistency. With progression of the symptoms came to ED. Patient also going to the gym. Managed for carbuncle cannot r/o abscess
A/P:
#carbuncle cannot r/o abscess with purulent skin cellulitis
Vanco/cefepime (high risk for pseudomonas)
WoundCx, MRSA screen
GenSx for I&D
Bcx
#Anxiety d/o
#HLD
cont home meds
DVT ppx lovenox
Full code
I have spent at least 52min reviewing chart, test results, communication with consultants and providing direct patient care
Anticipated Discharge: 24 - 48 hours
Subjective/Interval History
-
Date of Service: October 07, 2024
Objective Data
-
Labs:
Laboratory Results
10/06/24 10/07/24
20:17 07:26
WBC 6.5 5.4
Hgb 13.7 13.8
Hct 40.6 42.2
Plt Count 170 160
Sodium 137 Pending
Potassium 5.0 Pending
Chloride 103 Pending
Carbon Dioxide 26 Pending
BUN 19 Pending
Creatinine 1.2 Pending
Glucose 94 Pending
Calcium 9.3 Pending
Total Bilirubin 0.5
AST 50
ALT 38
Alkaline Phosphatase 57
Vital Signs:
Vital Signs
Temp Pulse Resp BP Pulse Ox
98.1 F 70 18 146/76 98
10/06/24 23:01 10/06/24 23:01 10/06/24 23:01 10/06/24 23:01 10/06/24 23:01
I&O
10/06/24 10/07/24 10/08/24
06:59 06:59 06:59
Intake Total 1000 / 1000
Balance 1000 / 1000
Review of Systems
-
History Source: Patient
All other systems: Reviewed and negative
Physical Exam
-
General: Comfortable
HEENT: Normocephalic
GI: Soft, Nontender and Nondistended
Skin: Other (R upper back purulnt induration that draining from multiple sites)
Neuro: Awake, Alert, Oriented and AO x 3
Psych: Calm
[2024-10-07] MEDS: THERAGRAN 1 TABLET PO (08:24)
[2024-10-07] MEDS: ZOLOFT 100 MG PO (08:24)
[2024-10-07] MEDS: PROTONIX 40 MG PO (08:24)
[2024-10-07] MEDS: CRESTOR 20 MG PO (08:24)
[2024-10-07] MEDS: ZYLOPRIM 300 MG PO (08:25)
[2024-10-07 08:34] LABS: Blood Urea Nitrogen 16 mg/dl (9-20); Calcium 8.7 mg/dl (8.4-10.2); Carbon Dioxide 26 mmol/L (22-30); Chloride 107 mmol/L (98-107); Estimated Creatinine Clearance 110 ml/min; Glucose 93 mg/dl (70-99); Potassium 4.8 mmol/L (3.5-5.1); Sodium 139 mmol/L (135-145); eGFR > 60.00
[2024-10-07] MEDS: STERILE WATER FOR INJECTION 10 ML IV ×2 (09:37→17:38)
[2024-10-07] MEDS: MAXIPIME 2000 MG IV ×2 (09:37→17:38)
[2024-10-07] MEDS: FLUSH (NSS) 1 FLUSH IV ×3 (09:38→17:38)
--- NOTE | 2024-10-07 11:24 | PHA.VAN.FU ---
Vancomycin Assessment / Plan
- Assessment
Renal Function: Stable
WBC's are: WNL
In the past 24 hrs, patient has been: Afebrile
Concomitant Antimicrobials: cefepime
- Dosing Plan
Continue: Vanc 1500mg Q12H
- Monitoring Plan
No level(s) ordered at this time: consider levels in next few days
- Follow Up
Pharmacy will continue to follow.
Vancomycin Follow UP
- -
Patient Age: 49
Patient Sex: Male
Vancomycin Day #: 2
Indication: Skin And Soft Tissue
Requesting Provider: Herbert Castellano
Pertinent Antimicrobial Allergies:
amoxicililn - rash
Height / Weight:
Height 5 ft 10 in
Actual Weight 107.615 kg
Pertinent Past Medical History: BMI ~34
- Vital Signs / Lab Results
Temp Pulse Resp BP Pulse Ox
97.5 F 67 18 108/60 98
10/07/24 07:27 10/07/24 07:27 10/07/24 07:27 10/07/24 07:27 10/07/24 08:33
Lab Results - Hematology
10/06/24 10/07/24
20:17 07:26
WBC 6.5 5.4
Lab Results - Chemistry
10/06/24 10/07/24
20:17 07:26
BUN 19 16
Creatinine 1.2 1.0
Estimated Creat Clear 110
Albumin 4.4
[2024-10-07] MEDS: XYLOCAINE 2% WITH EPINEPHRINE 20 ML INFIL (11:50)
--- NOTE | 2024-10-07 12:24 | CON.GS ---
Addendum entered and electronically signed by Ramana Lunsford MD 10/07/24 13:58:
I was physically present and personally performed the barajas portions of the surgical evaluation and/or procedure with the resident. I discussed the findings, reviewed the resident�s note, and confirmed the medical decision-making. I provided direct
supervision as required and agree with the assessment and plan as documented with the following additions/corrections:
1 week hx of inflamed lump on his back. Denies f/c/n/v. UC visit and PO abx did not improve his condition. ED visit with additional abx also did not improve his condition. he is admitted for soft tissue infection, consulted for I&D. Informed
consent obtained.
Procedure in detail:
Skin prepped with etoh
Lidocaine 1% with epi infiltrated into the skin
A 1cm elliptical incision was made at the point of maximum fluctuance. A small amount of pus was released.
The wound was cultured
The wound was irrigated and packed with DSG and a DSD was place.
Daily packing changes explained.
Plan to complete bactrim, stop keflex.
F/U Cx.
Outpt F/U in GS office for wound check in 2 weeks
OK for DC home from surg standpoint
Original Note:
Consultation
-
Date/Time Consultation Requested: 10/06/2024
Date/Time Consultation Performed: 10/07/2024
Requesting Provider: Milan Owen
Performing Provider: Ramana Lunsford
Reason for Consultation: Skin infection-Right upper back
Medical History
-
Chief Complaint: 49 y/o M w/ PMH of BKA and Melanoma c/o pain from an abscess on his back
History of Present Illness:
Patient is a 49y M with PMH significant for BKA, melanoma and YOSSI who presents to ED complaining of wound / abscess on the back x 1 week. Patient noted redness, pain and swelling in the area last Thursday. He was seen at Urgent Care and placed on
oral abx without significant improvement. There was intermittent purulent / thick discharge from the site. He was seen here in the ED on 10/04 and additional I&D was attempted without expression of significant material from the site. Keflex was
added to his Bactrim and patient was discharged to home. He notes no improvement since that time. Minimal continued drainage / discharge. New small pustules around the edge of the indurated area so he came back to ED. Patient currently denies any
n/v/f/c. He states that he usually goes to the gym and wants to get back to that activity. He also states that he has three nurses in his immediate family who'd be able to help him with aftercare of his wound I &D.
Past Medical History
Past Medical History: Cancer (Melanoma), GERD, Psychiatric (Anxiety. Depression. ) and Other (YOSSI)
Past Surgical History: Orthopedic (BKA)
Social History
Tobacco: Non-Smoker
Alcohol: Occasional
Drug: Marijuana ( (THC gummies for insomnia occasionally ))
Personal:
Living: With Family
Employment: Retired
Family History
Family History: Reviewed & Not Pertinent
Allergies / Home Medications
Allergy/AdvReac Type Severity Reaction Status Date / Time
amoxicillin Allergy Rash Verified 10/06/24 19:07
latex Allergy Itching Verified 10/06/24 19:07
oxycodone HCl (From Percocet) Allergy Itching Verified 10/06/24 19:07
�Medication �Instructions �Recorded �Confirmed �Type
Fruits And Veggies Powder 1 dose PO DAILY Supplement 10/06/24 10/06/24 History
acetaminophen 500 mg tablet 1,000 mg PO DAILYPRN PRN mild pain 10/06/24 10/06/24 History
(Tylenol Extra Strength)
allopurinol 300 mg tablet 300 mg PO DAILY Gout 10/06/24 10/06/24 History
anastrozole 1 mg tablet 1 mg PO WESA Cancer 10/06/24 10/06/24 History
azelastine 137 mcg (0.1 %) nasal 2 spray intranasal DAILY Allergies 10/06/24 10/06/24 History
spray
cephalexin 500 mg capsule 500 mg PO .SEE BELOW 10/06/24 10/06/24 History
Infection
collagen 1 dose PO Q48H Supplement 10/06/24 10/06/24 History
creatine monohydrate 5 mg PO BID Supplement 10/06/24 10/06/24 History
diclofenac sodium 75 mg 75 mg PO BID Anti-Inflammatory 10/06/24 10/06/24 History
tablet,delayed release
famotidine 40 mg tablet (Pepcid) 40 mg PO DAILYPRN PRN gerd 10/06/24 History
ondansetron HCl 4 mg tablet 4 mg PO Q6HPRN PRN nausea/vomiting 10/06/24 10/06/24 History
pantoprazole 40 mg tablet,delayed 40 mg PO DAILY Gastrointestinal 10/06/24 10/06/24 History
release Issue
polysaccharide iron complex 150 mg 150 mg PO Q48H@0800 Supplement 10/06/24 10/06/24 History
iron capsule (iFerex 150)
rosuvastatin 20 mg tablet 20 mg PO DAILY High Cholesterol 10/06/24 10/06/24 History
sertraline 100 mg tablet 100 mg PO DAILY Depression 10/06/24 10/06/24 History
sulfamethoxazole 800 1 tab PO BID Infection 10/06/24 10/06/24 History
mg-trimethoprim 160 mg tablet
testosterone cypionate 200 mg/mL 100 mg IM WESA Hormonal Agent 10/06/24 10/06/24 History
intramuscular oil
therapeutic multivitamin 1 tab PO DAILY Supplement 10/06/24 10/06/24 History
Review of Systems
-
History Source: Patient
All other systems: Negative unless noted
Skin: Other (Infected cyst located on right upper back. Large, tender, swollen, red. )
A 10 point review of systems was completed, and was negative except as per HPI.
Physical Exam
Vital Signs
Temp Pulse Resp BP Pulse Ox
97.5 F 67 18 108/60 98
10/07/24 07:27 10/07/24 07:27 10/07/24 07:27 10/07/24 07:27 10/07/24 08:33
10/06/24 10/07/24 10/08/24
06:59 06:59 06:59
Actual Weight 107.615 kg
Body Mass Index (BMI) 34.0
Lab Results
10/07/24 07:26
10/07/24 07:26
WBC 5.4 10^3/uL (4.8-10.8) 10/07/24 07:
Hgb 13.8 g/dL (13.0-18.0) 10/07/24 07:26
Hct 42.2 % (39.0-52.0) 10/07/24 07:26
Plt Count 160 10^3/uL (130-400) 10/07/24 07:26
Abs Immat Gran (auto) 0.0 10^3/uL (0-0.05) 10/06/24 20:17
Neutrophils % 67.4 % (42.2-75.2) 10/06/24 20:17
AFVSS
Labs: WNL
Physical Exam
General: Well Developed, No Apparent Distress and Comfortable
HEENT: Normocephalic and Atraumatic
Respiratory: Non Labored Respirations
Musculoskeletal: Other (Left side above the knee amputation)
Skin: Other (Infected cyst located on right upper back. Large, tender, swollen, red. )
Neuro: AO x 3
Psych: Calm
Data Reviewed
-
Labs: Labs Reviewed by me
Critical Care Time (in minutes): 35
Total Time Spent with Patient (in minutes): 55
Assessment / Plan
-
49 y/o M with PMH of BKA, Melanoma, YOSSI presenting to the ED with an red tender and inflamed abscess/wound located on his right upper back. Upon further inspection, it is determined be an infected cyst.
--Patient agreed to have bedside procedure to unroof the cyst.
--After administrating lidocaine, a dime sized hole was cut out and the infected cyst was removed and edges were scraped to check for remnants.
--Culture was collected. Path report pending.
--Wound bled minimally and was packed tightly with gauze and taped up.
--Patient can stop his home medication of Keflex
--Patient can finish off his home medication of Bactrim
--Patient advised to change dressing 1x daily with help of his family members
--Patient is free to be discharged. Advised not to strain himself too much but not restricted in any activity.
--F/U in O.P office in 1-2 weeks to check healing progress
[2024-10-07] MEDS: TYLENOL 650 MG PO (12:42)
[2024-10-07] MEDS: MORPHINE SULFATE 2 MG IV (14:30)
[2024-10-07 15:51] VITALS: BP 103/58
--- NOTE | 2024-10-07 16:24 | CM ---
Alert awake oriented patient who lives with his Siobhan who lives in a 2 story home with 4 step to enter and 20 steps to bed and bathroom. He is independent in driving and in all activities of daily living.He was offered VN he declined need.Twenty
years ago had an amputee left leg with prosthesis..CPAP with Rezmed. Observation letter given explained signed on chart.
VN hx / [facility] history
Pharmacy [facility]
PCP [facility]
PLAN Home Declined VN
--- NOTE | 2024-10-07 16:25 | PTCARENOTE ---
Pt AAO x3, MCDANIEL; OOB to BR no c/o; wears Lt AKA prosthesis when OOB. VSS. On room air- pulse ox 97%. Abd obese, soft, corazon PO well. Voids in BR without difficulty. Rt upper back dsg currently D/I. Pt c/o pain at site; good effect with IV
Morphine 2 mg. Resting in bed at present. Will continue to monitor.
[2024-10-07] MEDS: LOVENOX 40 MG SC (17:40)
[2024-10-07] MEDS: ULTRAM 25 MG PO (18:42)
[2024-10-07] MEDS: DILAUDID 0.25 MG IV (21:41)
[2024-10-07 23:07] VITALS: BP 117/67
[2024-10-08] MEDS: MAXIPIME 2000 MG IV ×2 (02:58→09:57)
[2024-10-08] MEDS: ULTRAM 25 MG PO ×3 (02:58→23:53)
[2024-10-08] MEDS: STERILE WATER FOR INJECTION 10 ML IV ×2 (02:58→09:58)
[2024-10-08] MEDS: VANCOCIN 530 MG IV ×2 (06:06→17:24)
[2024-10-08 07:37] VITALS: BP 112/60
[2024-10-08 08:38] LABS: Blood Urea Nitrogen 15 mg/dl (9-20); Calcium 8.7 mg/dl (8.4-10.2); Carbon Dioxide 29 mmol/L (22-30); Chloride 106 mmol/L (98-107); Estimated Creatinine Clearance 100 ml/min; Glucose 109 mg/dl (70-99); Potassium 4.7 mmol/L (3.5-5.1); Sodium 140 mmol/L (135-145); eGFR > 60.00
[2024-10-08] MEDS: PROTONIX 40 MG PO (09:06)
[2024-10-08] MEDS: THERAGRAN 1 TABLET PO (09:06)
[2024-10-08] MEDS: ZOLOFT 100 MG PO (09:06)
[2024-10-08] MEDS: ZYLOPRIM 300 MG PO (09:06)
[2024-10-08] MEDS: CRESTOR 20 MG PO (09:06)
--- NOTE | 2024-10-08 09:33 | PHA.VAN.FU ---
Vancomycin Assessment / Plan
- Assessment
Renal Function: Stable
In the past 24 hrs, patient has been: Afebrile
Concomitant Antimicrobials: Cefepime
- Dosing Plan
Continue: Vancomycin 1500mg IV Q12h
- Monitoring Plan
No level(s) ordered at this time: consider levels in next few days
- Follow Up
Pharmacy will continue to follow.
Vancomycin Follow UP
- -
Patient Age: 49
Patient Sex: Male
Vancomycin Day #: 3
Indication: Skin And Soft Tissue
Requesting Provider: Herbert Castellano
Pertinent Antimicrobial Allergies:
amoxicililn - rash
Height / Weight:
Height 5 ft 10 in
Actual Weight 107.615 kg
Pertinent Past Medical History: BMI ~34
- Vital Signs / Lab Results
Temp Pulse Resp BP Pulse Ox
97.9 F 77 16 112/60 98
10/08/24 07:37 10/08/24 07:37 10/08/24 07:37 10/08/24 07:37 10/08/24 07:37
Lab Results - Hematology
10/06/24 10/07/24
20:17 07:26
WBC 6.5 5.4
Lab Results - Chemistry
10/06/24 10/07/24 10/08/24
20:17 07:26 07:49
BUN 19 16 15
Creatinine 1.2 1.0 1.1
Estimated Creat Clear 110 100
Albumin 4.4
Microbiology Results
10/07/24 09:04 Blood Culture - Preliminary
Blood/Venous No Growth in 24 hours- Final report to follow
10/07/24 08:37 Blood Culture - Preliminary
Blood/Venous No Growth in 24 hours- Final report to follow
10/07/24 11:48 Gram Stain - Preliminary
Back
10/06/24 21:13 Gram Stain - Preliminary
Back
--- NOTE | 2024-10-08 10:28 | W.PN.HOSP.TC ---
Today's Communication/Plan
-
cont abx pendign further wound Cx since unclear what outpatient regimen to be effective at this time
Assessment / Plan
Assessment / Plan
49yo M with PMHx anxiety, HLD came with 1 week of progressive pain, redness and purulent drainage from wound on R upper back. Was initially Rx Abx, then attempted to have underskin collection drained in ED, however unsuccessful due to thick
consistency. With progression of the symptoms came to ED. Patient also going to the gym. Managed for carbuncle cannot r/o abscess
A/P:
#carbuncle cannot r/o abscess with purulent skin cellulitis
Vanco/cefepime (high risk for pseudomonas initially)
WoundCx - gram positive cocci -follow further ID
[facility] did I&D on 10/07/24. Recommended daily packing with dry dressing. F/U outpatient in 1 week
Bcx NTD
#Anxiety d/o
#HLD
cont home meds
DVT ppx lovenox
Full code
I have spent at least 52min reviewing chart, test results, communication with consultants and providing direct patient care
Anticipated Discharge: 24 - 48 hours
Subjective/Interval History
-
Date of Service: October 08, 2024
Objective Data
-
Labs:
Laboratory Results
10/08/24
07:49
Sodium 140
Potassium 4.7
Chloride 106
Carbon Dioxide 29
BUN 15
Creatinine 1.1
Glucose 109 H
Calcium 8.7
Vital Signs:
Vital Signs
Temp Pulse Resp BP Pulse Ox
97.9 F 77 16 112/60 98
10/08/24 07:37 10/08/24 07:37 10/08/24 07:37 10/08/24 07:37 10/08/24 07:37
I&O
10/07/24 10/08/24 10/09/24
06:59 06:59 06:59
Intake Total 999
Balance 999 / 999
Review of Systems
-
History Source: Patient
All other systems: Reviewed and negative
Physical Exam
-
General: No Apparent Distress
HEENT: Normocephalic
Psych: Calm
[2024-10-08 15:18] VITALS: BP 132/82
[2024-10-08] MEDS: LOVENOX 40 MG SC (17:24)
--- NOTE | 2024-10-08 19:11 | PTCARENOTE ---
Received patient this am AAOX3. Pt OOB ambulating in room with his prothesis with a steady gait. Pt medicated with Ultram for pain in right upper back wound with relief. Made patient comfortable. Cont to assess patient status.
[2024-10-08 23:00] VITALS: BP 145/79
[2024-10-09] MEDS: VANCOCIN 530 MG IV (06:28)
[2024-10-09 07:23] VITALS: BP 145/81
[2024-10-09 07:52] LABS: Blood Urea Nitrogen 21 mg/dl (9-20); Calcium 8.8 mg/dl (8.4-10.2); Carbon Dioxide 31 mmol/L (22-30); Chloride 102 mmol/L (98-107); Estimated Creatinine Clearance 100 ml/min; Glucose 104 mg/dl (70-99); Potassium 4.4 mmol/L (3.5-5.1); Sodium 139 mmol/L (135-145); eGFR > 60.00
[2024-10-09] MEDS: PROTONIX 40 MG PO (08:11)
[2024-10-09] MEDS: ZYLOPRIM 300 MG PO (08:11)
[2024-10-09] MEDS: CRESTOR 20 MG PO (08:11)
[2024-10-09] MEDS: THERAGRAN 1 TABLET PO (08:11)
[2024-10-09] MEDS: ZOLOFT 100 MG PO (08:11)
--- NOTE | 2024-10-09 09:36 | W.PN.HOSP.TC ---
Today's Communication/Plan
-
discharge
Assessment / Plan
Assessment / Plan
49yo M with PMHx anxiety, HLD came with 1 week of progressive pain, redness and purulent drainage from wound on R upper back. Was initially Rx Abx, then attempted to have underskin collection drained in ED, however unsuccessful due to thick
consistency. With progression of the symptoms came to ED. Patient also going to the gym. Managed for carbuncle s/p I&D, Cx grew MRSA sensitive to Bactrim. Patient took only 4 days of it at home before coming to the hospital, reasonable to restart
for 7 days with outpatient GenSx follow up as recommended. Medically stable for d/c home
A/P:
#carbuncle cannot r/o abscess with purulent skin cellulitis
Vanco/cefepime (high risk for pseudomonas initially)
WoundCx - gram positive cocci -follow further ID
GenSx did I&D on 10/07/24. Recommended daily packing with dry dressing. F/U outpatient in 1 week
Bcx NTD
#Anxiety d/o
#HLD
cont home meds
DVT ppx lovenox
Full code
I have spent at least 37min reviewing chart, test results, communication with consultants and providing direct patient care
Anticipated Discharge: Today
Subjective/Interval History
-
Date of Service: October 09, 2024
Objective Data
-
Labs:
Laboratory Results
10/09/24
06:39
Sodium 139
Potassium 4.4
Chloride 102
Carbon Dioxide 31 H
BUN 21 H
Creatinine 1.1
Glucose 104 H
Calcium 8.8
Vital Signs:
Vital Signs
Temp Pulse Resp BP Pulse Ox
97.6 F 69 18 145/81 98
10/09/24 07:23 10/09/24 07:23 10/09/24 07:23 10/09/24 07:23 10/09/24 08:00
I&O
10/08/24 10/09/24 10/10/24
06:59 06:59 06:59
Intake Total 1789 980 / 980
Balance 1789 980 / 980
Review of Systems
-
History Source: Patient
All other systems: Reviewed and negative
Physical Exam
-
General: No Apparent Distress
Skin: Other (packed R upper back wound)
Neuro: Awake, Alert, Oriented and AO x 3
Psych: Calm
--- NOTE | 2024-10-09 09:42 | W.DCSUMMARY ---
Discharge Summary
Discharge Data
Date of Admission: 10/06/24
Date of Discharge: 10/09/24
-
Pending Results: No
Hospital Course
49yo M with PMHx anxiety, skin CA, barrets, IBS, HLD came with 1 week of progressive pain, redness and purulent drainage from wound on R upper back. Was initially Rx Abx, then attempted to have underskin collection drained in ED, however
unsuccessful due to thick consistency. With progression of the symptoms came to ED. Patient also going to the gym. Managed for carbuncle s/p I&D, Cx grew MRSA sensitive to Bactrim. Patient took only 4 days of it at home before coming to the
hospital, reasonable to restart for 7 days with outpatient GenSx follow up as recommended. Medically stable for d/c home
I have spent at least 37min reviewing chart, test results, communication with consultants and providing direct patient care
Patient was managed for:
#carbuncle cannot r/o abscess with purulent skin cellulitis
#Anxiety d/o
#HLD
#Hx of skin CA
Discharge Plan
-
Patient Disposition: Home (Routine Discharge)
Discharge Diagnosis/Procedures: carbuncle
Diet: Regular
Activity: No restrictions
Driving Restrictions: As prior to admission
Bathing Restrictions: OK to Shower
Wound Care: Pack wound daily with dry gauze. Cover with overlying gauze absorbent pad. Change packing daily. Change overlying pad daily and as needed.
Remove dressing for showers to cleanse your wound
Referrals:
NONE,* [Family Provider, Internal Medicine]
Prescriptions:
Continued
ondansetron HCl 4 mg Tablet
4 mg PO Q6HPRN PRN (Reason: nausea/vomiting)
anastrozole 1 mg Tablet
1 mg PO WESA
polysaccharide iron complex [iFerex 150] 150 mg iron Capsule
150 mg PO Q48H@0800
famotidine [Pepcid] 40 mg Tablet
40 mg PO DAILYPRN PRN (Reason: gerd)
sertraline 100 mg Tablet
100 mg PO DAILY
therapeutic multivitamin Tablet
1 tab PO DAILY
acetaminophen [Tylenol Extra Strength] 500 mg Tablet
1,000 mg PO DAILYPRN PRN (Reason: mild pain)
pantoprazole 40 mg Tablet,Delayed Release (Dr/Ec)
40 mg PO DAILY
allopurinol 300 mg Tablet
300 mg PO DAILY
azelastine 137 mcg (0.1 %) [place],Non-Aerosol
2 spray INTRANASAL DAILY
testosterone cypionate 200 mg/mL Oil
100 mg IM WESA
rosuvastatin 20 mg Tablet
20 mg PO DAILY
Fruits And Veggies Powder
1 dose PO DAILY
diclofenac sodium 75 mg Tablet,Delayed Release (Dr/Ec)
75 mg PO BID
sulfamethoxazole-trimethoprim 800-160 mg Tablet
1 tab PO BID Qty: 14 0RF
Patient Comments:
10/06/2024, filled on 10/02/2024 and instructed to take 1 tablet BID for 7 days.
Discontinued
cephalexin 500 mg Capsule
500 mg PO .SEE BELOW
Patient Comments:
10/06/2024, filled on 10/04/2024 and instructed to take 1 capsule QID for 7 days; pt. takes BID instead of QID because they misread the instructions.
collagen powder
1 dose PO Q48H
creatine monohydrate powder
5 mg PO BID
Discharge Orders:
Discharge Patient (As Directed); Ordered 10/09/24
Ordered By: Sawyer Kapadia
Discharge Date and Time
Print Language: KHMER
--- NOTE | 2024-10-09 13:05 | CM ---
CM reviewed chart and noted dc order
Per chart review, no dc needs noted
== END 2024-10-09 12:43 | disposition home or self-care (01) | DRG 603 ==
LOC: 4 EAST ACU 09:43
PROVIDERS: Nurse Practitioner Family; Physician Assistant; ADMITTING PHYSICIAN Hospitalist; ATTENDING PHYSICIAN Internal Medicine; CONSULT PHYSICIAN Surgery; EMERGENCY PHYSICIAN Emergency Medicine
DX: L02.232 Carbuncle of back [any part, except buttock and flank] (principal); L02.212 Cutaneous abscess of back [any part, except buttock and flank]; L03.319 Cellulitis of trunk, unspecified; K22.70 Barrett's esophagus without dysplasia; K58.9 Irritable bowel syndrome, unspecified; B95.62 Methicillin resistant Staphylococcus aureus infection as the cause of diseases classified elsewhere; F32.A Depression, unspecified; F41.9 Anxiety disorder, unspecified; I10 Essential (primary) hypertension; G47.33 Obstructive sleep apnea (adult) (pediatric); K21.9 Gastro-esophageal reflux disease without esophagitis; M10.9 Gout, unspecified; G47.00 Insomnia, unspecified; Z89.612 Acquired absence of left leg above knee; Z85.820 Personal history of malignant melanoma of skin; Z88.0 Allergy status to penicillin; Z91.040 Latex allergy status; Z88.5 Allergy status to narcotic agent
CPT/HCPCS: 80048; 80053; 85025; 85027; 87040; 87070; 87075; 87147; 87186; 87205; 96374; 99284